=== PATIENT | female | born 1960 | race Two or more races ===

== ENCOUNTER → 2017-02-23 | Outpatient (CLI) | payer BC ==
[2017-02-23 10:17] LABS: Cholesterol 283 mg/dL (< 200); HDL Cholesterol 96 mg/dL (40-59); LDL Cholesterol 179 mg/dL (< 100); Triglycerides 116 mg/dL (< 150)
== END | disposition home or self-care (01) ==
LOC: LAB 08:32
PROVIDERS: ATTEND Internal Medicine
DX: E78.5 Hyperlipidemia, unspecified (principal)
CPT/HCPCS: 36415; 80061; 84443

== ENCOUNTER → 2019-02-05 | Outpatient (CLI) | payer BC, OTHER ==
[2019-02-05 09:35] LABS: Urine WBC None Seen /hpf (0 - 5)
[2019-02-05 09:38] LABS: Basophils # (auto) 0 uL; Basophils % (auto) 0.6 % (0.0-2.0); Eosinophils # (auto) 0.3 uL; Eosinophils % (auto) 6.1 % (0.0-7.0); Hematocrit 44.5 % (36.0-46.0); Hemoglobin 14.9 g/dL (12.2-16.2); Lymphocytes # (auto) 1.6 uL; Lymphocytes % (auto) 35.1 % (10.0-50.0); Mean Corpuscular Hemoglobin 30.3 pg (28.0-32.0); Mean Corpuscular Hgb Conc. 33.6 g/dL (32.0-36.0); Mean Corpuscular Volume 90.3 fL (80.0-100.0); Monocytes # (auto) 0.5 uL; Monocytes % (auto) 10.6 % (0.0-12.0); Neutrophils # (auto) 2.1 uL; Neutrophils % (auto) 47.6 % (37.0-80.0); Platelet Count (auto) 234 10^3/uL (140-450); Red Blood Cells 4.93 10^6/uL (4.0-5.20); Red Cell Distribution Width 13.4 % (11.8-14.3); White Blood Cell 4.5 10^3/uL (4.4-10.8)
[2019-02-05 09:47] LABS: Urine Bacteria FEW /hpf (None Seen); Urine Blood Negative /uL (Negative); Urine Specific Gravity 1.016 (1.001-1.035)
[2019-02-05 09:57] LABS: Albumin 4.2 g/dL (3.4-5.0); Calcium 9.5 mg/dL (8.5-10.1); Potassium 3.7 mmol/L (3.5-5.1)
[2019-02-05 10:05] LABS: BUN/Creatinine Ratio 14.3; Bilirubin, Total 0.4 mg/dL (0.2-1.0); Total Protein 8.2 g/dL (6.4-8.2)
== END | disposition home or self-care (01) ==
LOC: LAB 09:14
PROVIDERS: ATTEND Internal Medicine
DX: E78.00 Pure hypercholesterolemia, unspecified (principal); E55.9 Vitamin D deficiency, unspecified
CPT/HCPCS: 36415; 80053; 80061; 81001; 82306; 84439; 84443; 85025; 85652

== ENCOUNTER → 2019-06-09 | Outpatient (CLI) | payer OTHER ==
[2019-06-09 09:13] LABS: Cholesterol 255 mg/dL (< 200); HDL Cholesterol 83 mg/dL (40-59); LDL Cholesterol 146 mg/dL (< 100); Triglycerides 179 mg/dL (< 150)
== END | disposition home or self-care (01) ==
LOC: LAB 08:17
PROVIDERS: ATTEND Internal Medicine
DX: E78.00 Pure hypercholesterolemia, unspecified (principal)
CPT/HCPCS: 36415; 80061

== ENCOUNTER → 2020-10-18 | Outpatient (CLI) | payer OTHER ==
[2020-10-18 09:09] LABS: Basophils # (auto) 0.1 10 ^3/uL (0-0.2); Basophils % (auto) 2.8 % (0.0-2.0); Eosinophils # (auto) 0.3 10 ^3/uL (0-0.8); Eosinophils % (auto) 6.7 % (0.0-7.0); Hematocrit 42.2 % (36.0-46.0); Lymphocytes # (auto) 1.7 10 ^3/uL (0.4-5.4); Lymphocytes % (auto) 39.2 % (10.0-50.0); Mean Corpuscular Hemoglobin 29.9 pg (28.0-32.0); Mean Corpuscular Hgb Conc. 33.1 g/dL (32.0-36.0); Mean Corpuscular Volume 90.2 fL (80.0-100.0); Monocytes # (auto) 0.5 10 ^3/uL (0-1.3); Monocytes % (auto) 11.1 % (0.0-12.0); Neutrophils # (auto) 1.7 10 ^3/uL (1.6-8.6); Neutrophils % (auto) 40.2 % (37.0-80.0); Nucleated Red Blood Cells % 0.1 %; Platelet Count (auto) 300 10^3/uL (140-450); Red Blood Cells 4.68 10^6/uL (4.0-5.20); Red Cell Distribution Width 13.3 % (11.8-14.3); Urine WBC None Seen /hpf (0 - 5); White Blood Cell 4.4 10^3/uL (4.4-10.8)
[2020-10-18 09:15] LABS: Urine Bacteria NONE SEEN /hpf (None Seen); Urine Blood Negative /uL (Negative); Urine Specific Gravity 1.015 (1.001-1.035)
[2020-10-18 09:44] LABS: Potassium 3.7 mmol/L (3.5-5.1)
[2020-10-18 09:50] LABS: Albumin 3.8 g/dL (3.4-5.0); BUN/Creatinine Ratio 18.2; Bilirubin, Total 0.4 mg/dL (0.2-1.0); Calcium 9.2 mg/dL (8.5-10.1); Total Protein 7.7 g/dL (6.4-8.2)
== END | disposition home or self-care (01) ==
LOC: LAB 08:48
PROVIDERS: ATTEND Internal Medicine
DX: R03.0 Elevated blood-pressure reading, without diagnosis of hypertension (principal); Z78.0 Asymptomatic menopausal state
CPT/HCPCS: 36415; 80053; 80061; 81001; 82306; 84439; 84443; 85025; 85652

== ENCOUNTER 2021-08-24 08:54 | Observation (INO) | payer OTHER ==
[2021-08-22 13:02] LABS: Basophils # (auto) 0.1 10 ^3/uL (0-0.2); Basophils % (auto) 1.6 % (0.0-2.0); Eosinophils # (auto) 0.2 10 ^3/uL (0-0.8); Eosinophils % (auto) 5.1 % (0.0-7.0); Hematocrit 42.5 % (36.0-46.0); Hemoglobin 13.9 g/dL (12.2-16.2); Lymphocytes # (auto) 1.9 10 ^3/uL (0.4-5.4); Lymphocytes % (auto) 38.9 % (10.0-50.0); Mean Corpuscular Hemoglobin 29.6 pg (28.0-32.0); Mean Corpuscular Hgb Conc. 32.7 g/dL (32.0-36.0); Mean Corpuscular Volume 90.4 fL (80.0-100.0); Monocytes # (auto) 0.4 10 ^3/uL (0-1.3); Monocytes % (auto) 8.3 % (0.0-12.0); Neutrophils # (auto) 2.2 10 ^3/uL (1.6-8.6); Neutrophils % (auto) 46.1 % (37.0-80.0); Nucleated Red Blood Cells % 0.1 %; Red Cell Distribution Width 13.6 % (11.8-14.3); White Blood Cell 4.8 10^3/uL (4.4-10.8)
[2021-08-22 13:14] LABS: Urine Bacteria NONE SEEN /hpf (None Seen); Urine Blood Negative /uL (Negative); Urine Specific Gravity 1.006 (1.001-1.035)
[2021-08-22 13:24] LABS: INR 0.99 (0.9-1.15); Partial Thromboplastin Time 25.7 sec (23.6-33.0)
[2021-08-22 13:34] LABS: Calcium 9.8 mg/dL (8.5-10.1)
[2021-08-22 13:39] LABS: BUN/Creatinine Ratio 9.1; Bilirubin, Total 0.4 mg/dL (0.2-1.0); Total Protein 7.8 g/dL (6.4-8.2); Urine WBC None Seen /hpf (0 - 5)
[~2021-08-24] VITALS: Ht 160 cm; Wt 75.5 kg
[~2021-08-24 08:54] MED LIST: VALS40TA2 PO
[2021-08-24] MEDS ORDERED: levoFLOXacin 500MG 100 ML IV ONE (10:31)
[2021-08-24] MEDS ORDERED: NEOSTIGMINE 1 MG/ML INJ (10mg/10ML VIAL) ONE (15:07)
[2021-08-24] MEDS ORDERED: ROCURONIUM 10MG/ML 10ML VIAL IV ONE (15:07)
[2021-08-24] MEDS ORDERED: ONDANSETRON HCL 4 MG/2 ML VIAL ONE (15:07)
[2021-08-24] MEDS ORDERED: MEPERIDINE HCL (25 MG/ML) 1ML VIAL ONE (15:07)
[2021-08-24] MEDS ORDERED: fentaNYL CITRATE 100 MCG/2 ML VL ONE (15:07)
[2021-08-24] MEDS ORDERED: GLYCOPYRROLATE 0.2 MG/ML 1ML VIAL ONE (15:07)
[2021-08-24] MEDS ORDERED: MIDAZOLAM HCL 2MG/2ML 2ml VIAL (1mg/ml) ONE (15:07)
[2021-08-24] MEDS ORDERED: SODIUM CHLORIDE LOCK 10 ML ONE (15:07)
[2021-08-24] MEDS ORDERED: HYDROmorphone HCL 2 MG/ML VL IV PRN (15:15)
[2021-08-24] MEDS ORDERED: METOCLOPRAMIDE HCL 5MG/ml INJ 2ml VIAL IV PRN (15:15)
[2021-08-24] MEDS ORDERED: MORPHINE SULFATE 4 MG/ML SYR/VIAL IV PRN (15:15)
[2021-08-24] MEDS ORDERED: KETOROLAC TROMETH 30 MG/ML 1ML VIAL IV ONE (15:15)
[2021-08-24] MEDS ORDERED: hydrALAZINE HCL 20 MG/ML VL IV ONE (15:17)
[2021-08-24] MEDS ORDERED: BUPIVACAINE W/ EPINEPH 0.25% INJ 50ML MDV ONE (15:17)
[2021-08-24] MEDS ORDERED: PROPOFOL 10 MG/ML 20 ML IV ONE (15:17)
[2021-08-24] MEDS ORDERED: SUCCINYLCHOLINE CHLORIDE 20 MG/ML 10ML VIAL IV ONE (15:17)
[2021-08-24] MEDS ORDERED: DexAMETHasone SOD PHOS 10MG/1ML VIAL INJ ONE ×2 (15:41→17:37)
[2021-08-24] MEDS ORDERED: POVIDONE IODINE 10 % TOPICAL OINT 30GM TOP ONE (16:12)
[2021-08-24] MEDS ORDERED: KETOROLAC TROMETH 60MG/2ML VIAL ONE (16:26)
[2021-08-24] MEDS ORDERED: MORPHINE SULFATE INJECTION 2 MG/ML SYRG IV PRN (17:15)
[2021-08-24] MEDS ORDERED: NITROGLYCERIN 0.4 MG SL TAB SL PRN (17:15)
[2021-08-24] MEDS: ONDANSETRON HCL 4 MG/2 ML VIAL IV PRN ×2 (18:15→22:16)
[2021-08-24] MEDS: HYDROmorphone HCL 2 MG/ML VL IV PRN ×2 (18:15→22:16)
[2021-08-24] MEDS: D5W/SOD CHL 0.45%/KCL 20MEQ 1,000 ML IV SCH (19:27)
[2021-08-24 21:00] VITALS: BP 132/59
[2021-08-24 22:00] VITALS: BP 109/58
[2021-08-25] MEDS ORDERED: MULT-1018 PO (00:45)
[2021-08-25] MEDS ORDERED: INFLUENZA QUAD 2021-2022 0.5 ML SYRG IM ONE (00:45)
[2021-08-25] MEDS: D5W/SOD CHL 0.45%/KCL 20MEQ 1,000 ML IV SCH ×2 (03:07→09:08)
[2021-08-25 05:00] VITALS: BP 126/74
[2021-08-25] MEDS: ONDANSETRON HCL 4 MG/2 ML VIAL IV PRN (05:52)
[2021-08-25] MEDS: HYDROmorphone HCL 2 MG/ML VL IV PRN (05:52)
[2021-08-25 07:18] LABS: Basophils # (auto) 0 10 ^3/uL (0-0.2); Basophils % (auto) 0.1 % (0.0-2.0); Eosinophils # (auto) 0 10 ^3/uL (0-0.8); Hematocrit 37.6 % (36.0-46.0); Hemoglobin 12.7 g/dL (12.2-16.2); Lymphocytes # (auto) 0.8 10 ^3/uL (0.4-5.4); Lymphocytes % (auto) 7.8 % (10.0-50.0); Mean Corpuscular Hemoglobin 30.3 pg (28.0-32.0); Mean Corpuscular Hgb Conc. 33.8 g/dL (32.0-36.0); Mean Corpuscular Volume 89.7 fL (80.0-100.0); Monocytes # (auto) 0.7 10 ^3/uL (0-1.3); Monocytes % (auto) 6.5 % (0.0-12.0); Neutrophils # (auto) 8.8 10 ^3/uL (1.6-8.6); Neutrophils % (auto) 85.6 % (37.0-80.0); Red Blood Cells 4.19 10^6/uL (4.0-5.20); Red Cell Distribution Width 13.7 % (11.8-14.3); White Blood Cell 10.3 10^3/uL (4.4-10.8)
[2021-08-25] MEDS ORDERED: cefTRIAXone 1GM/50ML D5W 50 ML IV SCH (09:00)
[2021-08-25 09:03] VITALS: BP 122/60
[2021-08-25] MEDS ORDERED: VALSARTAN 80 MG TAB PO SCH (10:00)
[2021-08-25] MEDS ORDERED: D5W/SOD CHL 0.45%/KCL 20MEQ 1,000 ML IV SCH (11:00)
[2021-08-25] MEDS ORDERED: HYDROcodone-ACET 5/325MG TAB PO PRN (11:00)
[2021-08-25 12:31] VITALS: BP 122/60
[2021-08-25 12:55] VITALS: BP 128/67
[2021-08-25 17:00] VITALS: BP 146/73
== END 2021-08-25 15:50 | disposition home or self-care (01) ==
LOC: SUR 08:54 → CENTRAL 17:03 → INTOOBSV 17:03
PROVIDERS: ADMIT Nurse Practitioner Acute Care; ATTEND Internal Medicine
DX: K80.10 Calculus of gallbladder with chronic cholecystitis without obstruction (principal); Z20.822 Contact with and (suspected) exposure to COVID-19; I10 Essential (primary) hypertension; K66.0 Peritoneal adhesions (postprocedural) (postinfection); K82.8 Other specified diseases of gallbladder; Z23 Encounter for immunization
CPT/HCPCS: 36415; 47562; 80053; 81001; 82247; 85025; 85610; 85730; 86850; 86900; 86901; 88304; 90471; 90686; 96361; 96365; 96375; 96376; G0378; J0330; J0360; J0696; J1100; J1170; J1885; J1956; J2175; J2250; J2405; J2704; J3010; U0003

== ENCOUNTER → 2022-05-05 | Outpatient (CLI) | payer OTHER ==
[~2022-05-05] MED LIST changes: +MULT-1018 PO
[2022-05-05 09:24] LABS: Alanine Aminotransferase 32 U/L (13-56); Aspartate Aminotransferase 21 U/L (15-37); Cholesterol 230 mg/dL (< 200); HDL Cholesterol 73 mg/dL (40-59); LDL Cholesterol 130 mg/dL (< 100); Triglycerides 219 mg/dL (< 150)
== END | disposition home or self-care (01) ==
LOC: LAB 08:34
PROVIDERS: ATTEND Internal Medicine
DX: G47.00 Insomnia, unspecified (principal); E78.5 Hyperlipidemia, unspecified
CPT/HCPCS: 36415; 80061; 84439; 84443; 84450; 84460

== ENCOUNTER → 2022-12-28 | Outpatient (CLI) | payer OTHER ==
[2022-12-28 12:47] LABS: Hepatitis B Surface Antibody Positive (Negative)
[2022-12-28 18:58] LABS: Hepatitis B Core IgM Negative; Hepatitis C Antibody Negative (Negative)
[2022-12-29 08:06] LABS: Immunoglobulin G, Serum 1177 mg/dL (586-1602)
== END | disposition home or self-care (01) ==
LOC: LAB 11:36
PROVIDERS: ATTEND Internal Medicine
DX: G25.81 Restless legs syndrome (principal); G56.00 Carpal tunnel syndrome, unspecified upper limb
CPT/HCPCS: 36415; 82607; 82784; 83540; 83735; 86200; 86334; 86431; 86704; 86705; 86706; 86803; 87340

== ENCOUNTER → 2023-06-15 | Outpatient (CLI) | payer BC | END | disposition home or self-care (01) | LOC: LAB 09:11 | PROVIDERS: ATTEND Internal Medicine | DX: I10 Essential (primary) hypertension (principal); E78.5 Hyperlipidemia, unspecified | CPT/HCPCS: 36415; 80061; 84132; 84450; 84460 ==

== ENCOUNTER 2023-07-27 10:40 | Day surgery (SDC) | payer BC ==
[2023-07-25 12:00] LABS: Basophils # (auto) 0.1 10 ^3/uL (0-0.2); Basophils % (auto) 1.5 % (0.0-2.0); Eosinophils # (auto) 0.3 10 ^3/uL (0-0.8); Eosinophils % (auto) 4.8 % (0.0-7.0); Hemoglobin 14.4 g/dL (12.2-16.2); Lymphocytes % (auto) 37.2 % (10.0-50.0); Mean Corpuscular Hemoglobin 29.7 pg (28.0-32.0); Mean Corpuscular Hgb Conc. 33.6 g/dL (32.0-36.0); Mean Corpuscular Volume 88.5 fL (80.0-100.0); Monocytes # (auto) 0.6 10 ^3/uL (0-1.3); Monocytes % (auto) 11.2 % (0.0-12.0); Neutrophils # (auto) 2.4 10 ^3/uL (1.6-8.6); Neutrophils % (auto) 45.3 % (37.0-80.0); Nucleated Red Blood Cells % 0.1 %; Red Blood Cells 4.86 10^6/uL (4.0-5.20); Red Cell Distribution Width 13.4 % (11.8-14.3); White Blood Cell 5.4 10^3/uL (4.4-10.8)
[2023-07-25 12:25] LABS: INR 0.97 (0.9-1.15); Partial Thromboplastin Time 26.8 SEC (24.5-34.5); Prothrombin Time 10.2 sec (9.3-11.8)
[2023-07-25 12:36] LABS: Alanine Aminotransferase 27 U/L (7-40); Alkaline Phosphatase 82 U/L (46-116); Anion Gap 4.7 (5-15); Aspartate Aminotransferase 23 U/L (13-40); BUN/Creatinine Ratio 13.3 (10.0-20.0); Blood Urea Nitrogen 10 mg/dL (9-23); Calcium 9.8 mg/dL (8.5-10.1); Carbon Dioxide 28.3 mmol/L (20-30); Chloride 107 mmol/L (98-107); Glucose 89 mg/dL (74-106); Potassium 4.4 mmol/L (3.5-5.1); Sodium 140 mmol/L (136-145)
[2023-07-25 12:37] LABS: Albumin 4.6 g/dL (3.2-4.8); Bilirubin, Total 0.5 mg/dL (0.2-1.0); Total Protein 7.6 g/dL (5.7-8.2)
[~2023-07-27] VITALS: Ht 160 cm; Wt 71.2 kg
[~2023-07-27 10:40] MED LIST changes: +GABA-1308 PO; +LOVA20TA4 PO; +VALS1TAB58 PO; -VALS40TA2 PO
[2023-07-27] MEDS ORDERED: SODIUM CHLORIDE LOCK 10 ML ONE (10:47)
[2023-07-27 11:44] VITALS: PULSE 69; RESP 16; O2SAT 98
[2023-07-27] MEDS: diphenhdrAMINE HCL 50 MG/1 ML VL ONE ×2 (11:53→11:54)
[2023-07-27] MEDS: MIDAZOLAM HCL 5 MG/ML-1ML VIAL ONE ×3 (11:53→12:03)
[2023-07-27] MEDS: fentaNYL CITRATE 100 MCG/2 ML VL ONE ×2 (11:53→11:55)
[2023-07-27 12:08] VITALS: PULSE 68; RESP 13; TEMP 97.5; O2SAT 98
[2023-07-27 12:40] VITALS: BP 135/65; PULSE 61; RESP 17; O2SAT 99
== END 2023-07-27 12:55 | disposition home or self-care (01) ==
LOC: GI 10:40
PROVIDERS: ATTEND Internal Medicine Gastroenterology
DX: Z12.11 Encounter for screening for malignant neoplasm of colon (principal); K64.8 Other hemorrhoids
CPT/HCPCS: 36415; 45380; 80053; 85025; 85610; 85730; 88305; J1200; J2250; J3010; J7030; 99152

== ENCOUNTER → 2024-08-07 | Outpatient (CLI) | payer BC ==
[2024-08-07 09:21] LABS: Urine Bacteria None Seen /hpf (None Seen)
[2024-08-07 09:33] LABS: Urine Blood Negative /uL (Negative); Urine Clarity Clear (Clear); Urine Color Light-Yellow (Yellow); Urine Mucus FEW (None Seen); Urine Protein, UAD Negative (Negative); Urine Specific Gravity 1.019 (1.001-1.035); Urine Urobilinogen Normal (Negative); Urine WBC 1 /hpf (0 - 5)
[2024-08-07 09:39] LABS: Basophils # (auto) 0.1 10 ^3/uL (0-0.2); Basophils % (auto) 1.3 % (0.0-2.0); Eosinophils # (auto) 0.3 10 ^3/uL (0-0.8); Eosinophils % (auto) 6.7 % (0.0-7.0); Hematocrit 40.2 % (36.0-46.0); Hemoglobin 13.9 g/dL (12.2-16.2); Lymphocytes # (auto) 1.7 10 ^3/uL (0.4-5.4); Lymphocytes % (auto) 34.2 % (10.0-50.0); Mean Corpuscular Hemoglobin 31.1 pg (28.0-32.0); Mean Corpuscular Hgb Conc. 34.6 g/dL (32.0-36.0); Monocytes # (auto) 0.6 10 ^3/uL (0-1.3); Monocytes % (auto) 11.6 % (0.0-12.0); Neutrophils # (auto) 2.3 10 ^3/uL (1.6-8.6); Neutrophils % (auto) 46.2 % (37.0-80.0); Nucleated Red Blood Cells % 0.1 %; Platelet Count (auto) 257 10^3/uL (140-450); Red Blood Cells 4.46 10^6/uL (4.0-5.20); Red Cell Distribution Width 13.5 % (11.8-14.3); White Blood Cell 5.1 10^3/uL (4.4-10.8)
[2024-08-07 10:06] LABS: Erythrocyte Sedimentation Rate 8 mm/hr (0-20)
[2024-08-07 10:17] LABS: Alanine Aminotransferase 28 U/L (7-40); Albumin 4.5 g/dL (3.2-4.8); Alkaline Phosphatase 90 U/L (46-116); Anion Gap 9 (5-15); Aspartate Aminotransferase 20 U/L (13-40); BUN/Creatinine Ratio 12.8 (10.0-20.0); Bilirubin, Total 0.6 mg/dL (0.2-1.0); Blood Urea Nitrogen 10 mg/dL (9-23); Calcium 10.1 mg/dL (8.7-10.4); Carbon Dioxide 26 mmol/L (20-31); Chloride 109 mmol/L (98-107); Cholesterol 236 mg/dL (< 200); Glucose 93 mg/dL (74-106); HDL Cholesterol 78 mg/dL (40-59); LDL Cholesterol 143 mg/dL (< 100); Potassium 4.1 mmol/L (3.5-5.1); Sodium 144 mmol/L (136-145); Total Protein 7.2 g/dL (5.7-8.2); Triglycerides 137 mg/dL (< 150)
== END | disposition home or self-care (01) ==
LOC: LAB 08:57
PROVIDERS: ATTEND Internal Medicine
DX: I10 Essential (primary) hypertension (principal); E78.00 Pure hypercholesterolemia, unspecified
CPT/HCPCS: 36415; 80053; 80061; 81001; 84439; 84443; 85025; 85652

== ENCOUNTER 2025-06-03 09:24 | Outpatient (CLI) | payer BC ==
[2025-06-03 10:10] LABS: Hematocrit 43.0 % (36.0-46.0); Hemoglobin 14.8 g/dL (12.2-16.2); Mean Corpuscular Hemoglobin 30.7 pg (28.0-32.0); Mean Corpuscular Volume 89.4 fL (80.0-100.0); Nucleated Red Blood Cells % 0.1 %
[2025-06-03 10:25] LABS: Urine Protein, UAD Negative (Negative)
[2025-06-03 11:09] LABS: Alanine Aminotransferase 30 U/L (7-40); Alkaline Phosphatase 90 U/L (46-116); Anion Gap 11 (5-15); BUN/Creatinine Ratio 15.6 (10.0-20.0); Bilirubin, Total 0.5 mg/dL (0.2-1.0); Blood Urea Nitrogen 12 mg/dL (9-23); Carbon Dioxide 27 mmol/L (20-31); Chloride 105 mmol/L (98-107); Glucose 89 mg/dL (74-106); Potassium 3.9 mmol/L (3.5-5.1); Sodium 143 mmol/L (136-145); Total Protein 7.6 g/dL (5.7-8.2)
[2025-06-03 11:18] LABS: Albumin 5.0 g/dL (3.2-4.8); Calcium 10.9 mg/dL (8.7-10.4); Cholesterol 283 mg/dL (< 200); HDL Cholesterol 83 mg/dL (40-59); Triglycerides 224 mg/dL (< 150)
== END 2025-06-03 17:00 | disposition home or self-care (01) ==
LOC: LAB 09:24
PROVIDERS: ATTEND Internal Medicine
DX: S82.409A Unspecified fracture of shaft of unspecified fibula, initial encounter for closed fracture (principal); I10 Essential (primary) hypertension; Z78.0 Asymptomatic menopausal state; X58.XXXA Exposure to other specified factors, initial encounter; Y93.89 Activity, other specified; Y92.89 Other specified places as the place of occurrence of the external cause; Y99.8 Other external cause status
CPT/HCPCS: 36415; 80053; 80061; 81001; 82306; 83970; 84439; 84443; 85025; 85652